=== PATIENT | female | born 1970 | race Caucasian/White ===

== ENCOUNTER 2017-02-02 18:39 | Emergency (ER) | payer OTHER ==
[~2017-02-02] VITALS: Ht 160 cm; Wt 93.9 kg
[~2017-02-02 18:39] MED LIST: PREN1CAP6 PO
[2017-02-02 18:54] VITALS: BP 159/102
--- NOTE | 2017-02-02 19:59 | NUR ---
AMBULATED TO ER BED 5
--- NOTE | 2017-02-02 20:05 | NUR ---
46/F c/o abscess to left buttock since November intermittently. Pt also c/o severe pain. Denies drainage. PT states the pain worsened last night. Pt also reports chills, denies fever. AOX4, ambulatory with steady gait. VSS. Daughter at bedside.
[2017-02-02] MEDS ORDERED: LIDOCAINE 1% 500 MG/50 ML VIAL INJ SCH (20:15)
--- NOTE | 2017-02-02 20:32 | NUR ---
Dr. Nvaarro at bedside for I&D.
[2017-02-02] MEDS ORDERED: LIDOCAINE 1% ED 50 ML ONE (20:38)
--- NOTE | 2017-02-02 21:12 | NUR ---
Dr. Navarro made aware of pt's HR 132. All over VS stable. Pt denies any chest pain, denies any dizziness, headache. Dr. Navarro okay pt to be discharged home.
[2017-02-02 21:13] VITALS: BP 138/78
--- NOTE | 2017-02-02 21:13 | NUR ---
Patient discharged with v/s stable. Written and verbal after care instructions given and explained. Patient alert, oriented and verbalized understanding of instructions. Ambulatory with steady gait. All questions addressed prior to discharge. ID band removed. Patient advised to follow up with PMD in two days for a wound check. Rx of Ultram 50mg and Clindamycin Hydrochloride 300mg given. Patient educated on indication of medication including possible reaction and side effects. Opportunity to ask questions provided and answered.
== END 2017-02-02 21:13 | disposition home or self-care (01) ==
LOC: MED 18:39
DX: L02.31 Cutaneous abscess of buttock (principal); Z79.899 Other long term (current) drug therapy
CPT/HCPCS: 10060; 99283; J2001

== ENCOUNTER 2017-02-04 16:00 | Emergency (ER) | payer OTHER ==
[~2017-02-04] VITALS: Ht 162.6 cm; Wt 94.0 kg
[2017-02-04 16:09] VITALS: BP 139/67
--- NOTE | 2017-02-04 16:30 | NUR ---
46/F BIB DAUGHTER FOR abscess I&D 02/02/2017, packed---instructed to return today for wound check. PT'S DAUGHTER STS PT ACCIDENTALLY REMOVED PACKING. HX DM. RX metformin, insulin.
--- NOTE | 2017-02-04 16:41 | NUR ---
Patient being evaluated by physician at bedside.
[2017-02-04] MEDS ORDERED: HYDROmorphone PFS 2 MG/ML SYR IM ONE (16:45)
[2017-02-04] MEDS ORDERED: LORazepam 1 MG TAB PO ONE (16:55)
--- NOTE | 2017-02-04 17:05 | NUR ---
WOUND CARE DONE
--- NOTE | 2017-02-04 17:30 | NUR ---
Patient discharged with v/s stable. Written and verbal after care instructions given and explained. Patient alert, oriented and verbalized understanding of instructions. Ambulatory with steady gait. All questions addressed prior to discharge. ID band removed. Patient advised to follow up with PMD. Rx of NORCO 5-325 given. Patient educated on indication of medication including possible reaction and side effects. Opportunity to ask questions provided and answered.
[2017-02-04 18:16] VITALS: BP 141/69
== END 2017-02-04 17:30 | disposition home or self-care (01) ==
LOC: MED 16:00
DX: Z48.01 Encounter for change or removal of surgical wound dressing (principal); R03.0 Elevated blood-pressure reading, without diagnosis of hypertension; E11.9 Type 2 diabetes mellitus without complications; Z79.899 Other long term (current) drug therapy
CPT/HCPCS: 82948; 96372; 99283; J1170